=== PATIENT | male | born 2000 | race Caucasian/White ===

== ENCOUNTER 2020-01-17 21:20 | Emergency (ER) | payer SELFPAY ==
[~2020-01-17] VITALS: Ht 177.8 cm; Wt 68.0 kg
[2020-01-17 21:30] VITALS: BP 126/76
[2020-01-17] MEDS ORDERED: HYDROcodone/Acetamin 5/325 tab ORAL ONE (21:45)
--- NOTE | 2020-01-17 22:37 | Emergency Room Report ---
History of Present Illness General Chief Complaint: Upper Extremity Injury Source: Patient Present Illness HPI History of present illness: 19-year-old [id number] male presents status post skateboard injury. Complains of isolated right wrist pain. Nonradiating. Worse with movement. Better with rest. Quality is aching. Fall happened prior to arrival. Denies head trauma, loss of consciousness, neck pain, back pain, chest pain, unsteady gait Past medical history: Denies Past surgical history: Denies Smoking: Denies Alcohol use: Denies Drug use: Denies Review of systems: CONST: No fevers or chills, No night sweats PULMONARY: No productive cough, No shortness of breath CARDIAC: No chest pain, No palpitations GI: No vomiting, No diarrhea , No melena_or_BRBPR : No dysuria, No hematuria, No discharge NEURO: No new_focal_weakness_or_numbness, No confusion, No vision changes MSK: Right wrist pain. Denies numbness or tingling. 14 point Review of Systems is otherwise negative except per HPI Physical Exam: GENERAL: Awake_alert_ nontoxic, no acute distress Spo2 100% on [RA], [normal] EYES: Extraocular muscles are intact. Conjunctivae clear. Lids without swelling ENT: External nose and ear normal_in_appearance. Oropharynx clear. Head_ atraumatic, Moist_oral_mucosa NECK: No JVD. No meningismus. No thyromegaly. Supple. Trachea midline RESP: Normal respiratory effort. Symmetric rise. No stridor. Clear_to_ auscultation_No_rales_No_wheezes CARDIAC: Regular rate and regular rhythm on_auscultation No_significant pedal edema. ABDOMEN: Soft. Nondistended. Nontender_No_rebound_or_guarding. MSK: Normal muscle tone, without rigidity. Extremities without asymmetric deformity or swelling. Upper extremity exam: Right Elbow: No swelling / effusion appreciated, no significant pain with passive range of motion Wrist: Tenderness to palpation at the proximal right wrist. No snuffbox tenderness to palpation. Radial pulses plus 2 out of 4. Compartments are soft and compressible Lateral epicondyle: no tenderness / swelling / ecchymoses Medial epicondyle: no tenderness / swelling / ecchymoses Radial pulse: 2+ Capillary refill: <3 seconds in all fingers All fingers: full range of motion without any tenderness / swelling / deformity / evidence of infection Scaphoid: no tenderness / swelling / ecchymoses, no pain with axial loading of the thumb Radian / Median / Ulnar nerves: all intact (finger opposition, finger adduction / abduction, thumb dorsiflexion) Sensation intact to light touch: in all fingers Strength 5/5 with: wrist dorsi / volar flexion, hand color card maker, elbow flexion / extension SKIN: Warm and dry. No visible cyanosis or pallor NEUROLOGIC: Alert, oriented x3. Motor_and_sensation_grossly_intact. No truncal ataxia. Gait_normal Psych: Normal mood and affect, normal judgment and insight - COORDINATION OF CARE Case was discussed with: Patient Any imaging that were ordered were interpreted as part of the medical decision making: Medical Decision Making/Plan: Differential diagnosis includes musculoskeletal pain, fracture, dislocation, compartment syndrome, arterial occlusion, nerve damage, among others. Patient is neurologically intact. No spinal step-offs. Abdominal examination is benign. Right upper extremity exam is notable for pain with palpation of the proximal right radius. Compartments are soft and compressible. X-rays show nondisplaced closed right radius fracture. Possible ulnar styloid fracture. Patient was immobilized in a sugar tong splint. He was neurovascularly intact pre-and post procedure. He tolerated well. I have instructed patient to follow-up with his primary care doctor for referral to orthopedics within 1 week. Splint care instructions were provided and discussed. Will discharge home with a prescription for [place]. Patient has been counseled to not drive or operate heavy machinery while taking this medication as it can make him drowsy. He verbalizes understanding. 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 Patient verbalizes understanding. Distally the patient has capillary refill <2 seconds and strong pulses. There is no pallor or pain out of proportion to exam. There is no significant swelling, deformity, or report of significant dislocation that subsequently reduced. No evidence of arterial occlusion or injury. Pertinent results reviewed with the patient. I educated the patient on the current treatment plan including the risks, benefits, and alternatives. I also discussed the extent and limitations of the current evaluation. The patient expressed understanding and agreement with plan. I recommended PMD follow-up within 1-3 days. Also advised that the patient return to the Emergency Department as soon as possible if they experience any new, persistent, or worsening symptoms. Allergies: Coded Allergies: No Known Allergies (Unverified , 01/17/20) COVID-19 Screening Contact w/high risk pt: No Experienced COVID-19 symptoms?: No COVID-19 Testing performed [employer]: No Nursing Documentation-PMH Past Medical History: No Stated History Hx Cardiac Problems: No Hx Hypertension: No Hx Pacemaker: No Hx Asthma: No Hx COPD: No Hx Diabetes: No Hx Cancer: No Hx Gastrointestinal Problems: No Hx Dialysis: No History Of Psychiatric Problem: No Hx Neurological Problems: No Hx Cerebrovascular Accident: No Hx Seizures: No Physical Exam Vital Signs Date Time Temp Pulse Resp B/P (MAP) Pulse Ox O2 Delivery O2 Flow Rate FiO2 01/17/20 21:22 98.2 102 18 126/76 (93) 98 Room Air Sp02 EP Interpretation: reviewed, normal Procedures Splinting Progress Right sugar tong splint: splint applied to right wrist splint applied by tech with direct supervision by me. Reassessed following splint application. Neurovascular intact. Patient tolerated procedure well without complications. Medical Decision Making Diagnostic Impression: Primary Impression: Closed fracture of right distal radius Last Vital Signs Date Time Temp Pulse Resp B/P (MAP) Pulse Ox O2 Delivery O2 Flow Rate FiO2 01/17/20 21:22 98.2 102 18 126/76 (93) 98 Room Air Referrals: NOT CHOSEN EMILY/,REFERRING (PCP) Nguyen Dean D.O. Jan 17, 2020 22:37
[2020-01-17] MEDS ORDERED: NAPROXEN500 M1 ORAL (22:43)
[2020-01-17] MEDS ORDERED: NORCO 5-325 TA1 EAC1 ORAL (22:43)
[2020-01-17 22:50] VITALS: BP 128/72
--- NOTE | 2020-01-18 16:07 | Diagnostic Imaging Report ---
Clinical Indication:Pain, status post fall from skateboard Technique: 3 views of the wrist Comparison: None Findings: There is a subtle lucency through the medial aspect of the radial articular surface and cortex. There is also some irregularity at the medial physis. The ulnar styloid is ununited. This may be developmental or due to old trauma. No evidence of carpal fracture. Impression: Evidence of nondisplaced distal radial fracture Ununited ulnar styloid. This may be the result of prior trauma or could be developmental
--- NOTE | 2020-01-18 16:09 | Diagnostic Imaging Report ---
Indication: Right hand pain, status post fall from skateboard Technique: 3 views right hand Comparison: none Findings: Distal radial fracture described on wrist radiograph is equivocally visualized. Ununited ulnar styloid is likewise noted. No acute hand fractures. No dislocations. The joint spaces are preserved. Impression: Distal radial fracture, old ununited ulnar styloid fracture versus developmental deformity-please see separate wrist radiograph report No evidence of acute hand fracture
--- NOTE | 2020-01-18 16:12 | Diagnostic Imaging Report ---
Indications: Pain, status post fall from skateboard Technique: Two views of the right forearm Comparison: None Findings: There is a break in the medial distal radial cortex. The ulnar styloid is ununited. This appears to be chronic. No shaft fracture demonstrated. Impression: Positive for distal radial fracture This agrees with the preliminary interpretation reported by the emergency room physician in the electronic medical record
== END 2020-01-17 22:50 | disposition home or self-care (01) ==
LOC: EMR 22:06
DX: S52.501A Unspecified fracture of the lower end of right radius, initial encounter for closed fracture (principal); W01.0XXA Fall on same level from slipping, tripping and stumbling without subsequent striking against object, initial encounter; Y93.51 Activity, roller skating (inline) and skateboarding; Y92.9 Unspecified place or not applicable
CPT/HCPCS: 29125; 99284